=== PATIENT | female | born 1995 | race African-American/Black ===

== ENCOUNTER 2016-10-16 01:59 | Emergency (ER) | payer MEDICAID ==
[~2016-10-16] VITALS: Ht 172.7 cm; Wt 71.0 kg
[2016-10-16] MEDS ORDERED: IBUPROFEN 600MG TABLET PO ONE (06:30)
[2016-10-16 07:08] VITALS: BP 131/74
== END 2016-10-16 07:44 | disposition home or self-care (01) ==
LOC: ER 01:59
DX: H92.03 Otalgia, bilateral (principal); J04.0 Acute laryngitis; R49.0 Dysphonia
CPT/HCPCS: 81025; 99282; 99283

== ENCOUNTER 2019-05-05 11:25 | Emergency (ER) | payer MEDICAID ==
[~2019-05-05] VITALS: Ht 172.7 cm; Wt 69.0 kg
[2019-05-05] MEDS ORDERED: ACETAMINOPHEN 325MG TABLET PO PRN (13:00)
[2019-05-05 13:09] LABS: CLARITY URINE CLOUDY (CLEAR); COLOR URINE YELLOW (YELLOW); KETONES URINE 2+ (NEGATIVE); LEUKOCYTE ESTERASE URINE 1+ (NEGATIVE); NITRITE URINE NEGATIVE (NEGATIVE); OCCULT BLOOD URINE NEGATIVE (NEGATIVE); PH URINE 5.5 (4.5-8.0); PROTEIN URINE NEGATIVE (NEGATIVE); SPECIFIC GRAVITY URINE 1.024 (1.005-1.030)
[2019-05-05] MEDS ORDERED: NITROFURANTOIN 100MG M/M CAPSULE PO ONE (13:45)
[2019-05-05 14:45] VITALS: BP 115/68
== END 2019-05-05 14:46 | disposition home or self-care (01) ==
LOC: ER 11:25
DX: O23.12 Infections of bladder in pregnancy, second trimester (principal); Z3A.18 18 weeks gestation of pregnancy; Z98.890 Other specified postprocedural states
CPT/HCPCS: 76805; 81003; 81025; 99284